=== PATIENT | male | born 1965 | race Caucasian/White ===

== ENCOUNTER → 2016-08-20 | Outpatient (CLI) | payer OTHER ==
[~2016-08-20] MED LIST: AMOX875T PO; ESOM20CA PO; FERR324T PO
[2016-08-20 12:58] LABS: BASO % 0.9 %; BASO ABS # 0.05 K/uL (0-0.2); COMPLETE YES; EOS % 1.8 %; HEMATOCRIT 34.9 % (42-52); IG% 0.5 %; LYMPH % 31.5 %; LYMPH ABS # 1.76 K/uL (1.2-3.4); MEAN CORPUSCULAR HEMOGLOBIN 25.4 pg (25-34); MEAN CORPUSCULAR HGB CONC 29.2 g/dl (32-36); MEAN PLATELET VOLUME 10.9 fL (7.4-10.4); MONO % 15.6 %; NEUT % 49.7 %; PLATELET COUNT 376 K/uL (130-400); RED BLOOD COUNT 4.01 M/uL (4.7-6.1); WHITE BLOOD COUNT 5.58 K/uL (4.8-10.8)
[2016-08-20 13:16] LABS: CALCIUM 8.9 mg/dl (8.5-10.1)
[2016-08-20 13:20] LABS: ALT/SGPT 21 U/L (12-78); AST/SGOT 13 U/L (15-37); BLOOD UREA NITROGEN 10 mg/dl (7-18); BUN/CREATININE RATIO 12.8 (10-20); CARBON DIOXIDE 28 mmol/L (21-32); CHLORIDE 106 mmol/L (98-107); CHOLESTEROL 180 mg/dl (0-200); CREATININE 0.78 mg/dl (0.60-1.40); GLUCOSE 86 mg/dl (70-99); POTASSIUM 3.4 mmol/L (3.5-5.1); SODIUM 143 mmol/L (136-145); TRIGLYCERIDES 43 mg/dl (0-150); VERY LOW DENSITY LIPOPROT CALC 9 mg/dl
[2016-08-20 13:35] LABS: URINE APPEARANCE TURBID (CLEAR); URINE COLOR DK YELLOW; URINE NITRITE NEG (NEG); URINE SPECIFIC GRAVITY 1.023 (1.000-1.030); UROBILINOGEN NEG (NEG)
[2016-08-20 13:36] LABS: ALB/GLOB RATIO 1.3 (0.9-2); ALKALINE PHOSPHATASE 84 U/L (45-117); CHOLESTEROL/HDL RATIO 3.1; HDL CHOLESTEROL 59 mg/dl; LDL CHOLESTEROL CALCULATED 112 mg/dl
[2016-08-20 13:56] LABS: MANUAL MICROSCOPIC REQUIRED? NO; REVIEW REQ? NO; URINE BILIRUBIN NEG (NEG)
== END | disposition home or self-care (01) ==
LOC: C.LABPBG 08:13
PROVIDERS: ATTEND Neuromusculoskeletal Medicine & OMM
DX: Z00.00 Encounter for general adult medical examination without abnormal findings (principal); Z12.5 Encounter for screening for malignant neoplasm of prostate; N40.1 Benign prostatic hyperplasia with lower urinary tract symptoms; M06.9 Rheumatoid arthritis, unspecified

== ENCOUNTER → 2016-09-02 | Outpatient (CLI) | payer OTHER | END | disposition home or self-care (01) | LOC: C.LABPBG 15:30 | PROVIDERS: ATTEND Neuromusculoskeletal Medicine & OMM | DX: K13.70 Unspecified lesions of oral mucosa (principal) ==

== ENCOUNTER → 2016-09-09 | Outpatient (CLI) | payer OTHER ==
--- NOTE | 2016-09-09 10:22 | DIAGNOSTIC IMAGING REPORT ---
LEFT WRIST 4 VIEWS CLINICAL HISTORY: Rheumatoid arthritis. FINDINGS: 4 views of left wrist are obtained. No prior studies are available for comparison at the time of dictation. The skeletal structures are well mineralized. No fracture is seen. The joint spaces of the wrist appear preserved. No erosive change is seen. A radiodense/metallic foreign body is identified within the palmar soft tissues between the base of the third and fourth metacarpals. IMPRESSION: 1. No acute bony abnormality is identified. 2. A metallic foreign body is present within the palmar soft tissues. Electronically signed by: Bishop Green M.D. 09/09/2016 10:21 AM Dictated Date/Time: 09/09/2016 10:20 AM
--- NOTE | 2016-09-09 10:23 | DIAGNOSTIC IMAGING REPORT ---
PELVIS 1 OR 2 VIEW ROUTINE CLINICAL HISTORY: M13.80 Symmetrical [id number] Rheumatoid [id number] COMPARISON STUDY: No previous studies for comparison. FINDINGS: No fractures are visualized. The joint space of each hip appears well-preserved for age. There are no erosive or destructive changes. IMPRESSION: 1. No evidence of fracture 2. The joint space of each hip appears well-preserved for age Electronically signed by: Taj Neal M.D. 09/09/2016 10:22 AM Dictated Date/Time: 09/09/2016 10:22 AM
--- NOTE | 2016-09-09 10:23 | DIAGNOSTIC IMAGING REPORT ---
RIGHT HAND MIN 3 VIEWS ROUTINE CLINICAL HISTORY: Symmetric polyarthritis. Rheumatoid arthritis. COMPARISON: None. DISCUSSION: There is an old healed fracture the fifth metacarpal. No acute fractures are visualized. Bony mineralization appears normal for age. There is no erosive disease. IMPRESSION: 1. No acute fractures 2. No evidence of erosive disease Electronically signed by: Taj Neal M.D. 09/09/2016 10:22 AM Dictated Date/Time: 09/09/2016 10:21 AM
--- NOTE | 2016-09-09 10:24 | DIAGNOSTIC IMAGING REPORT ---
LEFT HAND 3 VIEWS CLINICAL HISTORY: Arthritis. FINDINGS: 3 views of the left hand are obtained. No prior studies are available for comparison at the time of dictation. The skeletal structures are well mineralized. No fracture is seen. The joint spaces of the hand appear preserved. No erosive change is identified. A metallic foreign body is present within the palmar soft tissues at the level of the base of the third metacarpal. IMPRESSION: 1. No acute bony abnormality is seen. 2. A metallic foreign body is present within the palmar soft tissues. Electronically signed by: Bishop Green M.D. 09/09/2016 10:22 AM Dictated Date/Time: 09/09/2016 10:21 AM
--- NOTE | 2016-09-09 10:25 | DIAGNOSTIC IMAGING REPORT ---
RIGHT WRIST 4 VIEWS HISTORY: M13.80 Symmetrical [id number] Rheumatoid [id number] Right COMPARISON: None. FINDINGS: There is no fracture or dislocation. Soft tissues are unremarkable. No radiopaque foreign bodies. Bone mineralization is intact. No erosions identified. Cartilage spaces are maintained for age. IMPRESSION: Unremarkable right wrist. No erosions identified. Electronically signed by: Shawn Guevara M.D. 09/09/2016 10:23 AM Dictated Date/Time: 09/09/2016 10:22 AM
--- NOTE | 2016-09-09 10:25 | DIAGNOSTIC IMAGING REPORT ---
LEFT KNEE 3 VIEWS CLINICAL HISTORY: M13.80 Symmetrical [id number] Rheumatoid [id number] LEFT KNEE PAIN COMPARISON: None. DISCUSSION: No acute fractures or dislocations are visualized. There is a spur/osteochondroma arising from the medial femoral condyle. IMPRESSION: No evidence of fracture. No evidence of erosive disease. Electronically signed by: Taj Nael M.D. 09/09/2016 10:24 AM Dictated Date/Time: 09/09/2016 10:23 AM
[2016-09-09 10:33] LABS: BASO % 0.6 %; BASO ABS # 0.04 K/uL (0-0.2); COMPLETE YES; EOS % 1.1 %; HEMATOCRIT 39.8 % (42-52); IG% 0.7 %; LYMPH % 27.3 %; LYMPH ABS # 1.94 K/uL (1.2-3.4); MEAN CELL VOLUME 83.4 fL (80-100); MEAN CORPUSCULAR HEMOGLOBIN 24.9 pg (25-34); MEAN CORPUSCULAR HGB CONC 29.9 g/dl (32-36); MEAN PLATELET VOLUME 11.2 fL (7.4-10.4); MONO % 15.4 %; NEUT % 54.9 %; PLATELET COUNT 367 K/uL (130-400); RED BLOOD COUNT 4.77 M/uL (4.7-6.1)
[2016-09-09 11:01] LABS: ALT/SGPT 20 U/L (12-78); CREATININE 0.67 mg/dl (0.60-1.40)
[2016-09-09 11:04] LABS: ALKALINE PHOSPHATASE 119 U/L (45-117); AST/SGOT 15 U/L (15-37); RHEUMATOID FACTOR < 10.0 U/mL (0-15); TOTAL IRON BINDING CAPACITY 271 mcg/dl (250-450)
== END | disposition home or self-care (01) ==
LOC: C.RAD1850 09:23
PROVIDERS: ATTEND Internal Medicine Rheumatology
DX: M06.9 Rheumatoid arthritis, unspecified (principal); M13.80 Other specified arthritis, unspecified site; Z79.52 Long term (current) use of systemic steroids; Z79.899 Other long term (current) drug therapy

== ENCOUNTER → 2017-01-04 | Outpatient (CLI) | payer OTHER ==
[2017-01-04 12:10] LABS: BASO % 0.2 %; BASO ABS # 0.02 K/uL (0-0.2); COMPLETE YES; EOS % 0.3 %; HEMATOCRIT 43.2 % (42-52); IG% 0.5 %; LYMPH % 13.4 %; LYMPH ABS # 1.17 K/uL (1.2-3.4); MEAN CELL VOLUME 84.4 fL (80-100); MEAN CORPUSCULAR HEMOGLOBIN 27.3 pg (25-34); MEAN CORPUSCULAR HGB CONC 32.4 g/dl (32-36); MEAN PLATELET VOLUME 10.9 fL (7.4-10.4); MONO % 7.3 %; NEUT % 78.3 %; PLATELET COUNT 264 K/uL (130-400); RED BLOOD COUNT 5.12 M/uL (4.7-6.1); WHITE BLOOD COUNT 8.76 K/uL (4.8-10.8)
[2017-01-04 14:20] LABS: ALT/SGPT 22 U/L (12-78); AST/SGOT 19 U/L (15-37); CREATININE 0.74 mg/dl (0.60-1.40)
== END | disposition home or self-care (01) ==
LOC: C.LAB1850 11:26
PROVIDERS: ATTEND Internal Medicine Rheumatology
DX: M06.9 Rheumatoid arthritis, unspecified (principal); Z79.899 Other long term (current) drug therapy; Z79.52 Long term (current) use of systemic steroids

== ENCOUNTER → 2017-03-14 | Outpatient (CLI) | payer OTHER ==
[2017-03-14 16:50] LABS: BASO % 0.3 %; BASO ABS # 0.02 K/uL (0-0.2); COMPLETE YES; EOS % 0.8 %; HEMATOCRIT 42.9 % (42-52); IG% 0.4 %; LYMPH % 29.8 %; LYMPH ABS # 2.15 K/uL (1.2-3.4); MEAN CELL VOLUME 86.5 fL (80-100); MEAN CORPUSCULAR HEMOGLOBIN 28.4 pg (25-34); MEAN CORPUSCULAR HGB CONC 32.9 g/dl (32-36); MEAN PLATELET VOLUME 9.9 fL (7.4-10.4); MONO % 12.3 %; NEUT % 56.4 %; PLATELET COUNT 282 K/uL (130-400); RED BLOOD COUNT 4.96 M/uL (4.7-6.1); WHITE BLOOD COUNT 7.21 K/uL (4.8-10.8)
[2017-03-14 17:25] LABS: ALT/SGPT 25 U/L (12-78); AST/SGOT 18 U/L (15-37); CREATININE 0.75 mg/dl (0.60-1.40)
[2017-03-14 17:28] LABS: ALKALINE PHOSPHATASE 114 U/L (45-117)
== END ==
LOC: C.LAB1850 16:01
PROVIDERS: ATTEND Internal Medicine Rheumatology
DX: M06.9 Rheumatoid arthritis, unspecified (principal); Z79.899 Other long term (current) drug therapy; Z79.52 Long term (current) use of systemic steroids

== ENCOUNTER → 2017-08-12 | Outpatient (CLI) | payer OTHER ==
[2017-08-12 17:00] LABS: BASO % 0.5 %; BASO ABS # 0.03 K/uL (0-0.2); EOS % 1.6 %; EOS ABS # 0.09 K/uL (0-0.5); HEMATOCRIT 34.5 % (42-52); HEMOGLOBIN 10.4 g/dL (14.0-18.0); IG# 0.02 K/uL (0.00-0.02); LYMPH % 27.3 %; LYMPH ABS # 1.58 K/uL (1.2-3.4); MEAN CORPUSCULAR HEMOGLOBIN 22.6 pg (25-34); MEAN CORPUSCULAR HGB CONC 30.1 g/dl (32-36); MEAN PLATELET VOLUME 10.3 fL (7.4-10.4); MONO % 13.3 %; MONO ABS # 0.77 K/uL (0.11-0.59); NEUT ABS # 3.29 K/uL (1.4-6.5); PLATELET COUNT 333 K/uL (130-400); RED CELL DISTRIBUTION WIDTH CV 17.9 % (11.5-14.5); WHITE BLOOD COUNT 5.78 K/uL (4.8-10.8)
[2017-08-12 17:22] LABS: ALBUMIN 3.8 gm/dl (3.4-5.0); CREATININE 0.87 mg/dl (0.60-1.40)
[2017-08-12 17:26] LABS: ALKALINE PHOSPHATASE 109 U/L (45-117); ALT/SGPT 29 U/L (12-78); AST/SGOT 22 U/L (15-37)
== END | disposition home or self-care (01) ==
LOC: C.LABPBG 15:07
PROVIDERS: ATTEND Internal Medicine Rheumatology
DX: M06.9 Rheumatoid arthritis, unspecified (principal); Z79.899 Other long term (current) drug therapy; Z79.1 Long term (current) use of non-steroidal anti-inflammatories (NSAID); M54.5 Low back pain

== ENCOUNTER 2018-11-29 10:41 | Inpatient (IN) ==
[2018-11-29 11:54] LABS: Hematocrit (blood only) 27.6 % (42-52); Hemoglobin 7.6 g/dL (14.0-18.0); Mean Corpuscular Hgb Conc 27.5 g/dL (32-36); Mean Corpuscular Volume 66.2 fL (80-100); Mean Platelet Volume 9.4 fL (7.4-10.4); Platelet Count 352 K/uL (130-400); RDW Coefficient of Variation 19.1 % (11.5-14.5); RDW Standard Deviation 42.7 fL (36.4-46.3); Red Blood Count 4.17 M/uL (4.7-6.1); White Blood Count 4.86 K/uL (4.8-10.8)
[2018-11-29 11:55] LABS: INR 1.2 (0.9-1.1); Partial Thromboplastin Time 25.9 Seconds (21.0-31.0)
[2018-11-29 11:57] LABS: Albumin Level 3.6 gm/dl (3.4-5.0); Calcium 8.2 mg/dl (8.5-10.1); Creatinine Clr Calc Pharmacy 107.5 ml/min; Est GFR (African American) 119.9; Est GFR (Non-African American) 103.4; Potassium 3.4 mmol/L (3.5-5.1)
--- NOTE | 2018-11-29 11:57 | Emergency Department Note ---
ED Visit Note I assisted Dr. Hunter in the evaluation and management of this patient. Please see her note for complete visit details. Jing Ashby MD PGY3 [facility] . Resident Activity Tracking Resident Involvement: Resident Care Provided Care Provided: Adult ED
[2018-11-29 12:00] LABS: Albumin Globulin Ratio 1.1 (0.9-2); Bilirubin,Total 0.3 mg/dl (0.2-1); Globulin 3.2 gm/dl (2.5-4.0); Total Protein 6.8 gm/dl (6.4-8.2)
[2018-11-29 12:02] LABS: Basophils # (auto) 0.03 K/uL (0-0.2); Basophils % (auto) 0.6 %; Eosinophils # (auto) 0.02 K/uL (0-0.5); Eosinophils % (auto) 0.4 %; Hypochromasia Present; Immature Granulocytes # (auto) 0.02 K/uL (0.00-0.02); Immature Granulocytes % (auto) 0.4 %; Lymphocytes # (auto) 0.94 K/uL (1.2-3.4); Lymphocytes % (auto) 19.3 %; Microcytosis Present; Monocytes # (auto) 0.54 K/uL (0.11-0.59); Monocytes % (auto) 11.1 %; Neutrophils # (auto) 3.31 K/uL (1.4-6.5); Neutrophils % (auto) 68.2 %; Ovalocytes 1+
[2018-11-29] MEDS ORDERED: FAMOTIDINE 20MG/5ML IV PUSH IV STA (12:22)
--- NOTE | 2018-11-29 12:23 | History & Physical Report ---
Date of Service November 29, 2018 Assessment & Plan (1) Rectal bleeding: Admit patient to medicine on telemetry for rectal bleeding and severe anemia. -Vital signs every 4 hours -2 units of PRBCs -CBC every 6 hours, CMP daily. -Gentle IV fluid hydration -Keep patient n.p.o. -Started Protonix 40 mg IV twice daily. -Consulted GI will follow up with patient. -Iron studies pending please follow-up. -Continue for now for ferrous sulfate 325 mg p.o. twice daily -Full code -DVT prophylaxis contraindicated due to GI bleed. Present on Admission?: Yes (2) Rheumatoid arthritis: Stable, continue methotrexate sodium and sulfasalazine. Present on Admission?: Yes (3) BPH (benign prostatic hyperplasia): Stable, continue tamsulosin 0.4 mg p.o. nightly Present on Admission?: Yes History of Present Illness Primary Care Provider: Bettina Mendoza DO Patient is a 52 years old male with past medical history of rheumatoid arthritis, benign prostatic hypertrophy and chronic anemia who presents to the emergency room complaining of chronic rectal bleeding for 4 years on and off. Patient states that rectal bleeding is worsening and that he also has chronic constipation. Patient had colonoscopy done 4 years ago. After that patient did not have follow-up and he also does not have established PCP. Patient was seeing MsBalta Orozco for the rheumatoid arthritis but she left the area recently. Patient said that for some period of time he did not follow on his blood count and his family told him that he looks pale. He admits drinking in the past approximately 15+ cans of beer on the weekends but he stopped 2 years ago and recently in past 2 weeks he had only 3 beers altogether. Other than that patient reports being in good health and not having any other issues. Patient states that his bowel movements are painful most of the time. There are on and off brown in color and formed but on occasions and recently more often his bowel movements are covered with red blood mucousy and very painful. Patient said he is aware that he has hemorrhoids and patient states they are internal and external. Patient said he did not try anything to relieve his pain and constipation or hemorrhoids. Nothing makes it better or worse. Patient denies headache fever chills chest pain shortness of breath abdominal pain frequency urgency hematuria hemoptysis nausea and vomiting. Hematology White blood cell 4.86, hemoglobin 7.6, hematocrit 27.6, MCV 66.2 low MCH 18.2 low MCHC 27.5 low. Chemistry sodium 140, potassium 3.4, creatinine 0.76, GFR 107.5, BUN/creatinine 9.0., PT 12 INR 1.2, APTT 25.9. The case was discussed and patient is admitted to [facility] telemetry for further management and treatment. Allergies Allergy/AdvReac Type Severity Reaction Status Date / Time No Known Allergies Allergy Verified 11/29/18 11:44 Home Medications Home Medications Medication Instructions Recorded Confirmed Type ferrous sulfate 325 mg PO BID 07/19/18 11/29/18 History omeprazole 20 mg PO QAM 07/19/18 11/29/18 History sulfasalazine 0.5 g PO BID 07/19/18 11/29/18 History tamsulosin 0.4 mg PO HS 07/20/18 11/29/18 History methotrexate sodium 7.5 mg PO WK 11/29/18 11/29/18 History Past Med/Surg History Medical History Rheumatoid arthritis Anxiety GERD (gastroesophageal reflux disease) CONTROLLED Diverticular disease Iron deficiency anemia ON IRON SUPPLEMENTATION BPH (benign prostatic hyperplasia) Inflammatory arthritis Surgical History History of prostate surgery July 2018; Cystoscopy, Transurethral Resection of Prostate History of colonoscopy September 2015; diverticulosis, internal hemorrhoids History of esophagogastroduodenoscopy (EGD) September 2015; small hiatus hernia, severe chronic gastritis, acute inflammation, +H Pylori, focal intestinal metaplasia. History of inguinal hernia repair RIGHT History of nasal surgery Family History Aunt Family hx of colon cancer Grandmother (Maternal) Family hx of colon cancer Other Family history of diabetes mellitus Social History Preferred Language: Northern Irish Communication Ability: Effective Cloud Engagement Partner Required: No Beliefs That Will Affect Care: None Current Living Situation: Spouse Other Information That Helps Us Care for You: No Feels Safe at Home: Yes Safety Concerns: Feels Safe At This Time Smoking Status: Never smoker Do You Dip or Chew Tobacco: No ; Second Hand Exposure: No ; Tobacco Cessation Education Requested by Patient: No Hx Alcohol Use: No Hx Substance Use: No Review of Systems Review of Systems: All systems reviewed & are unremarkable except as noted in HPI & below Gastrointestinal: + constipation, + constant urge to pass stools and + blood in stools; no abdominal pain Physical Exam Constitutional: WD/WN, vitals as above Eyes: PERRL, conjunctivae normal, anicteric sclerae ENMT: external ear and nose normal, oropharynx normal Neck: trachea midline, no thyromegaly Cardiovascular: RRR, no murmur, no edema Chest (Breasts): normal inspection/palpation of breasts Gastrointestinal (Abdomen): Inspection/Auscultation: + abdomen distended Percussion/Palpation: + dullness to percussion Rectal Exam: + heme positive stool and + rectal lesions Musculoskeletal: no cyanosis or clubbing, extremities motor strength 5/5 Skin: no rashes, warm and dry Neurologic: patellar DTR's 2+ bilat, sensation intact Psychiatric: A+Ox3, euthymic affect Genitourinary: no testicular masses, no penis abnormality Lymphatic: no cervical or axillary lymphadenopathy Results & Data Vital Signs (Past 12 Hours) Vital Signs Temp Pulse Resp BP Pulse Ox 11/29/18 12:01 98 11/29/18 10:45 37 C 88 18 144/76 H 96 Code Status & VTE Plan Code Status Full code VTE Prophylaxis Plan VTE Prophylaxis will be ordered: No Reason for no VTE drug order: Contraindicated (hematochezia) PG Care Time/CCT Total # of Minutes Spent Total Time Spent with Patient: Total time spent is greater than 50% in coordination of care (as documented) at patient's floor/unit and/or counseling patient:
[2018-11-29] MEDS: PANTOprazole 40 MG in SYRINGE 0 ML IV SCH ×2 (14:20→22:22)
[2018-11-29] MEDS ORDERED: POLYETHYLENE (MIRALAX) 17 GM PACK PO PRN (14:33)
[2018-11-29] MEDS ORDERED: ZOLPIDEM TARTRATE 5 MG TAB PO PRN (14:33)
[2018-11-29] MEDS ORDERED: ALUMINUM/MAGNESIUM SUSP 30 ML UDC PO PRN (14:33)
[2018-11-29] MEDS ORDERED: MAGNESIUM HYDROXIDE SUSP 30 ML UDC PO PRN (14:33)
[2018-11-29] MEDS ORDERED: ONDANSETRON INJ 2 MG/ML 2 ML VIAL IV PRN (14:33)
[2018-11-29] MEDS ORDERED: ACETAMINOPHEN 325 MG TAB PO PRN (14:33)
[2018-11-29] MEDS ORDERED: SODIUM CHLORIDE 0.9% 250 ML IV PRN (14:33)
--- NOTE | 2018-11-29 14:57 | Gastroenterology Progress Note ---
Date of Service November 29, 2018 Subjective Attg add: I interviewed and examined pt, reviewed chart and labs. Pt with a h/o RA, on NSAIDs; heavy alcohol; h/o chronic anemia and admission for fe def and unremarkable chan-endoscopy in 2016 now admit for rectal bleeding and anemia. Pt states that 2 weeks ago, he had 4-5 days of hematochezia - describes large vol dark red blood and clots. Per his report, he did not seek medical attention, and bleeding appeared to spontaneously improve. For the past week, he has had smaller volume of hematochezia; for the past 3 days he has small streaks of red blood around his bowel movements. He has chronic abd pain that is unchanged. On exam, mild hypertension, he has circumferential rectal prolapse and hemorrhoids. There is a bleeding point on one of the hemorrhoids that is slightly oozing. On PAU, there is no stool in the vault. His labs show hgb 7, MCV g7, decreased from 11 in June. His BUN is normal. A/p - Rectal bleeding - History and exam are c/w hemorrhoidal bleed. No need for inpt colonoscopy - his bleeding is likely chronic, as suggested by microcytosis; he has had recent cscopy in 2016 without sig pathology; his overt bleeding has largely resolved by his history, and his VS are stable. Please consult surgery for possible hemorrhoid removal. Will sign off, please call with any questions. Results & Data Vital Signs (Past 12 Hours) Vital Signs Temp Pulse Pulse Resp BP BP Pulse Ox 11/29/18 14:51 78 11/29/18 14:21 69 18 144/88 H 98 11/29/18 14:13 76 18 140/80 99 11/29/18 13:48 69 16 135/82 99 11/29/18 12:01 98 11/29/18 10:45 37 C 88 18 144/76 H 96
[2018-11-29] MEDS: NSS + 20MEQ KCL 20 MEQ/1,000 ML BAG IV SCH (15:03)
--- NOTE | 2018-11-29 15:11 | Gastrointestinal Consultation ---
Date of Consultation November 29, 2018 Assessment & Plan (1) Iron deficiency anemia: (2) Hemorrhoid prolapse: (3) Rectal bleeding: Pt is a 52 y/o male w microcytic anemia, rectal bleeding likely from hemorrhoids. - Agree with blood transfusion, monitor H/H - Would obtain Surgery consult while admitted to discuss possible hemorrhoidectomy - Defer endoscopic workup at this time. If he needs additional GI follow up after DC, would recommend referring to either [facility] or [facility] as [facility]. - GI to sign off; call if new questions/concerns arise History of Present Illness Reason for Consultation: Anemia, hematochezia Requesting Physician: Dr. Ilir Cortés Attending Physician: Dr. Lorri Mattson History of Present Illness Pt is a 52 y/o male w PMHx of RA, GERD, BPH, diverticulosis, anemia who was referred to ED for anemia. He had gone to PCP after family noted he's "yellow". Outpt labs obtained and he was referred to ED after noted to have microcytic anemia. Repeat labs today showed H/H 7.6/27.6, Hgb in April was 16. Normal platelet, INR 1.2, LFTs and Lipase normal. Pt denies uses of anticoagulants. Denies epistaxis, gum bleeding, hematomas. Does have rectal bleeding for years but noted increased blood amt in last 2 weeks. Notes stools are usually formed, and would see bright red blood coating stools or in such large amt that it turned commode liquid red. Rectal bleeding in last couple of day are a bit improved. He has known hx of hemorrhoids w rectal pain. Previously also seen by Surgery (Dr. Aparicio) but never followed up since insurance changed to [facility] and [facility] not taking this insurance. He has mild pressure like discomfort on lower abd areas otherwise denies any n/v. + mild light headedness, no CP, SOB. He had been evaluated by GI in 2016 for similar anemia symptoms. EGD/Colonoscopy done then. EGD showed small hiatal hernia, + Hpylori (treated). Colonoscopy showed diverticulosis, int hemorrhoids. He is on Methotraxate for RA. He takes Excedrin about 2 tabs a week for lower back pain. He denies any ETOH, tobacco, illicit drugs. Allergies Allergy/AdvReac Type Severity Reaction Status Date / Time No Known Allergies Allergy Verified 11/29/18 11:44 Home Medications Home Medications Medication Instructions Recorded Confirmed Type ferrous sulfate 325 mg PO BID 07/19/18 11/29/18 History omeprazole 20 mg PO QAM 07/19/18 11/29/18 History sulfasalazine 0.5 g PO BID 07/19/18 11/29/18 History tamsulosin 0.4 mg PO HS 07/20/18 11/29/18 History methotrexate sodium 7.5 mg PO WK 11/29/18 11/29/18 History Patient History Medical History Rheumatoid arthritis Anxiety GERD (gastroesophageal reflux disease) CONTROLLED Diverticular disease Iron deficiency anemia ON IRON SUPPLEMENTATION BPH (benign prostatic hyperplasia) Inflammatory arthritis Surgical History History of prostate surgery July 2018; Cystoscopy, Transurethral Resection of Prostate History of colonoscopy September 2015; diverticulosis, internal hemorrhoids History of esophagogastroduodenoscopy (EGD) September 2015; small hiatus hernia, severe chronic gastritis, acute inflammation, +H Pylori, focal intestinal metaplasia. History of inguinal hernia repair RIGHT History of nasal surgery Family History Aunt Family hx of colon cancer Grandmother (Maternal) Family hx of colon cancer Other Family history of diabetes mellitus Social History Preferred Language: Lao Communication Ability: Effective Elderly Companion Required: No Beliefs That Will Affect Care: None Current Living Situation: Spouse Feels Safe at Home: Yes Smoking Status: Never smoker Second Hand Exposure: No ; Hx Alcohol Use: No Hx Substance Use: No Review of Systems 2 Review of Systems: All systems reviewed & are unremarkable except as noted in HPI & below Physical Exam Constitutional: WD/WN, vitals as above well groomed, cooperative and comfortable Eyes: PERRL, conjunctivae normal, anicteric sclerae ENMT: external ear and nose normal, oropharynx normal Respiratory: normal respiratory effort, lungs clear to auscultation Cardiovascular: RRR, no murmur, no edema Gastrointestinal (Abdomen): normal bowel sounds, soft, nontender, no hepatosplenomegaly Rectal Exam: + hemorrhoids (prolapsed ; deferred internal exam as was done by admitted hospitalist ) Skin: no rashes, warm and dry no jaundice Neurologic: Motor/Sensory: no asterixis Psychiatric: A+Ox3, euthymic affect Lymphatic: no lymphedema Results & Data Vital Signs (Past 12 Hours) Vital Signs Temp Pulse Pulse Resp BP BP Pulse Ox 11/29/18 14:51 78 11/29/18 14:21 69 18 144/88 H 98 11/29/18 14:13 76 18 140/80 99 11/29/18 13:48 69 16 135/82 99 11/29/18 12:01 98 11/29/18 10:45 37 C 88 18 144/76 H 96
[2018-11-29] MEDS: FERROUS SULFATE 325 MG TAB PO SCH ×2 (15:16→20:43)
--- NOTE | 2018-11-29 15:38 | Emergency Department Note ---
Entered by Laura Zamora acting as a scribe for Katie Hunter MD History of Present Illness General Chief complaint: Abnormal Labs/Diagnostic Testing Stated complaint: ANEMIA Time Seen by Provider: 11/29/18 10:54 Source: patient History of Present Illness Onset (ago): day(s) 1 Location: head (general) Severity: similar to prior episodes Pain Consistency: + other (episode) Maximum Pain Intensity: 5 Quality: + other (abnormal blood work) Associated symptoms: + shortness of breath and + other (positive dizziness; negative lightheadedness; positive bloody stool) The patient is a 52 year old male who presents to the Emergency Room with complaints of an episode of abnormal blood work that began yesterday. The patient states that he saw his PCP yesterday and was called this morning by his PCP because of his low hemoglobin. He states that he was told his hemoglobin is 7.5. The patient states that he saw his PCP after his family noticed he appeared jaundice. He states that he has felt "run down" over the past week, and states that he has been dizzy and short of breath during this time. The patient states that he has a history of bleeding hemorrhoids and in the past week he has been filling the toilet bowl with bright red blood when he has a bowel movement. The patient denies nausea, vomiting, and lightheadedness. The patient states that he has a history of diverticular disease and in 2016 had transfusions after he was found to have a hemoglobin of 4. He reports that he previously was an alcoholic and has been alcohol free for 2 years, but states that he has had 1 or 2 beers in the in the past 2 weeks. The patient states that he is a previous smoker. Home Medications Home Medications Medication Instructions Recorded Confirmed Type ferrous sulfate 325 mg PO BID 07/19/18 11/29/18 History omeprazole 20 mg PO QAM 07/19/18 11/29/18 History sulfasalazine 0.5 g PO BID 07/19/18 11/29/18 History tamsulosin 0.4 mg PO HS 07/20/18 11/29/18 History methotrexate sodium 7.5 mg PO WK 11/29/18 11/29/18 History oxycodone-acetaminophen [Percocet] 1 - 2 tab PO Q4H PRN #15 tab 11/30/18 Rx Allergies Allergy/AdvReac Type Severity Reaction Status Date / Time No Known Allergies Allergy Verified 11/29/18 11:44 Past Med/Surg History Medical History Rectal bleeding Rheumatoid arthritis BPH (benign prostatic hyperplasia) Inflammatory arthritis GERD (gastroesophageal reflux disease) CONTROLLED Iron deficiency anemia ON IRON SUPPLEMENTATION Surgical History History of colonoscopy September 2015; diverticulosis, internal hemorrhoids History of esophagogastroduodenoscopy (EGD) September 2015; small hiatus hernia, severe chronic gastritis, acute inflammation, +H Pylori, focal intestinal metaplasia. History of inguinal hernia repair RIGHT History of nasal surgery History of prostate surgery July 2018; Cystoscopy, Transurethral Resection of Prostate Family History Aunt Family hx of colon cancer Grandmother (Maternal) Family hx of colon cancer Other Family history of diabetes mellitus Social History Preferred Language: Estonian Communication Ability: Effective Able Seaman Required: No Beliefs That Will Affect Care: None marital status: Current Living Situation: Spouse Feels Safe at Home: Yes Smoking Status: Never smoker Second Hand Exposure: No ; Hx Alcohol Use: No Hx Substance Use: No Review of Systems See HPI for pertinent positives & negatives. and A total of 10 systems reviewed and were otherwise negative Physical Exam Vital Signs Vital Signs - 24 hr 11/29/18 10:45 11/29/18 12:01 Temperature 37 C Temperature Source Oral Sepsis Recent Fever Within 48 Hours No Sepsis Action Taken by Nursing No Action Required Pulse Rate 88 Respiratory Rate 18 Blood Pressure 144/76 H Blood Pressure Mean 98 Pulse Oximetry 96 98 Oxygen Delivery Method Room Air Room Air Vital signs reviewed. General: Well-appearing 52 year old male, in no significant distress. HEENT: No scleral icterus, PERRLA, neck supple. Atraumatic. Cardiovascular: Regular rate and rhythm, no extra sounds. Pulmonary: Clear to auscultation bilaterally, normal work of breathing. Abdomen: Soft, nontender, nondistended, positive bowel sounds. Rectal: External hemorrhoids. Faintly guaiac positive. No active bleeding. Musculoskeletal: Atraumatic, no peripheral edema. Neurologic: Patient awake alert and oriented x 3 Skin: Pale in appearance. Warm, dry, no rash Course 1053: The patient was seen and evaluated by the resident Jing Ashby. 1213: Past medical records reviewed. The patient was evaluated in room C1B. A complete history and physical exam was performed. 1218: I discussed the case with Dr. Cortés -[facility] Hospitalist who accepts the patient for further evaluation. Administered Medications Discontinued Medications Acetaminophen (Tylenol) 650 mg PO Q4H PRN PRN Reason: Pain or Fever Stop: 12/29/18 14:32 Last Admin: 11/29/18 15:16 Dose: 650 mg Documented by: [id number] Hydrocodone Bitart/Acetaminophen ([place] 5/325) 1 tab PO Q4H PRN PRN Reason: Pain Stop: 12/14/18 14:00 Last Admin: 11/30/18 19:33 Dose: 1 tab Documented by: [id number] Bupivacaine HCl/Epinephrine Bitart (Sensorcaine/Epinephrine 0.5% Mpf 1:200,000) Confirm Administered Dose 30 ml .ROUTE .STK-MED ONE Stop: 11/30/18 11:29 Last Admin: 11/30/18 12:34 Dose: 20 ml Documented by: [id number] Cefazolin Sodium (Ancef 2000mg) Confirm Administered Dose 2,000 mg IV .STK-MED ONE Stop: 11/30/18 11:26 Last Admin: 11/30/18 11:50 Dose: 2,000 mg Documented by: [id number] Famotidine (Pepcid 20mg Iv Push) 20 mg IV ONE STA Stop: 11/29/18 12:23 Last Admin: 11/29/18 13:48 Dose: 20 mg Documented by: [id number] Fentanyl Citrate (Fentanyl Citrate) 50 mcg IV Q5M PRN PRN Reason: PACU Use Only-Pain Stop: 11/30/18 16:31 Last Admin: 11/30/18 13:26 Dose: 50 mcg Documented by: [id number] Admin: 11/30/18 13:21 Dose: 50 mcg Documented by: [id number] Ferrous Sulfate (Feosol) 325 mg PO BID MARGIE Stop: 12/29/18 14:44 Last Admin: 11/30/18 08:32 Dose: 325 mg Documented by: [id number] Admin: 11/29/18 20:43 Dose: 325 mg Documented by: [id number] Admin: 11/29/18 15:16 Dose: 325 mg Documented by: [id number] Gelatin (Surgifoam Sponge 100 (Large)) Confirm Administered Dose 1 ea .ROUTE .STK-MED ONE Stop: 11/30/18 11:28 Last Admin: 11/30/18 12:28 Dose: 1 ea Documented by: [id number] Gelatin (Surgifoam Sponge 100 (Large)) Confirm Administered Dose 1 ea .ROUTE .STK-MED ONE Stop: 11/30/18 12:22 Last Admin: 11/30/18 12:29 Dose: Not Given Documented by: [id number] Pantoprazole Sodium 40 mg/ (Syringe) 10 mls @ 5 mls/min IV BID@0900,2100 [facility] Stop: 12/29/18 13:29 Last Admin: 11/30/18 08:32 Dose: 5 mls/min Documented by: [id number] Admin: 11/29/18 22:22 Dose: 5 mls/min Documented by: [id number] Admin: 11/29/18 14:20 Dose: 5 mls/min Documented by: [id number] Potassium Chloride/Sodium Chloride (Normal Saline W/20 Meq Kcl) 20 meq in 1,000 mls @ 100 mls/hr IV .Q10H MARGIE Stop: 12/29/18 14:32 Last Infusion: 11/30/18 15:18 Dose: 0 mls/hr Documented by: [id number] Admin: 11/30/18 15:17 Dose: Not Given Documented by: [id number] Infusion: 11/30/18 10:50 Dose: 0 mls/hr Documented by: [id number] Admin: 11/30/18 06:39 Dose: 100 mls/hr Documented by: [id number] Infusion: 11/30/18 06:39 Dose: 100 mls/hr Documented by: [id number] Infusion: 11/29/18 22:17 Dose: 100 mls/hr Documented by: [id number] Infusion: 11/29/18 16:20 Dose: 0 mls/hr Documented by: [id number] Admin: 11/29/18 15:03 Dose: 100 mls/hr Documented by: [id number] Lidocaine (Xylocaine 5%) 1 appln EXT ONCE PRN PRN Reason: Hemorrhoids Stop: 12/30/18 12:29 Last Admin: 11/30/18 12:32 Dose: 1 appln Documented by: [id number] Potassium Chloride (Klor-Con M20) 40 meq PO NOW STA Stop: 11/30/18 05:09 Last Admin: 11/30/18 06:22 Dose: 40 meq Documented by: [id number] Simethicone (Mylicon) 80 mg PO Q6H PRN PRN Reason: gas pain Stop: 12/30/18 08:51 Last Admin: 11/30/18 10:13 Dose: 80 mg Documented by: [id number] Sulfadiazine (Azulfidine) 500 mg PO BID MARGIE Stop: 12/30/18 08:59 Last Admin: 11/30/18 08:32 Dose: 500 mg Documented by: [id number] Tamsulosin HCl (Flomax) 0.4 mg PO HS MARGIE Stop: 12/29/18 20:59 Last Admin: 11/29/18 20:42 Dose: 0.4 mg Documented by: [id number] Zolpidem Tartrate (Ambien) 5 mg PO HS PRN PRN Reason: Sleep Stop: 12/29/18 14:32 Last Admin: 11/30/18 00:21 Dose: 5 mg Documented by: [id number] Medical Decision Making Differential Diagnosis Differential diagnosis: Etiologies such as diverticulosis, AVM, coagulopathy, colitis, inflammatory bowel disease, malignancy, Carolyne-Shaikh tear, esophagitis, peptic ulcer disease, variceal bleed, gastritis, epistaxis, fissure, hemorrhoids, aswell as others were entertained. Medical Records Attestation: I reviewed the patient's medical records. Home Medications Current Medication List: was personally reviewed by me Laboratory Data Attestation: I reviewed the patient's lab results. Result diagrams: 11/30/18 14:41 11/30/18 02:36 Lab Results 11/29/18 11/29/18 11/29/18 Range/Units 11:23 11:27 11:27 WBC 4.86 (4.8-10.8) K/uL RBC 4.17 L (4.7-6.1) M/uL Hgb 7.6 L (14.0-18.0) g/dL Hct 27.6 L (42-52) % MCV 66.2 L (80-100) fL MCH 18.2 L (25-34) pg MCHC 27.5 L (32-36) g/dL RDW Std Deviation 42.7 (36.4-46.3) fL RDW Coeff of Ezekiel 19.1 H (11.5-14.5) % Plt Count 352 (130-400) K/uL MPV 9.4 (7.4-10.4) fL Immature Gran % (Auto) 0.4 % Neut % (Auto) 68.2 % Lymph % (Auto) 19.3 % [place] % (Auto) 11.1 % Eos % (Auto) 0.4 % Baso % (Auto) 0.6 % Immature Gran # (Auto) 0.02 (0.00-0.02) K/uL Neut # (Auto) 3.31 (1.4-6.5) K/uL Lymph # (Auto) 0.94 L (1.2-3.4) K/uL [place] # (Auto) 0.54 (0.11-0.59) K/uL Eos # (Auto) 0.02 (0-0.5) K/uL Baso # (Auto) 0.03 (0-0.2) K/uL Hypochromasia Present Microcytosis Present Ovalocytes 1+ PT 12.0 (9.0-12.0) Seconds INR 1.2 H (0.9-1.1) APTT 25.9 (21.0-31.0) Seconds PTT Ratio 1.0 Sodium (136-145) mmol/L Potassium (3.5-5.1) mmol/L Chloride (98-107) mmol/L Carbon Dioxide (21-32) mmol/L Anion Gap (3-11) BUN (7-18) mg/dl Creatinine (0.6-1.4) mg/dl Est Cr Clr Drug Dosing ml/min Est GFR ( Amer) Est GFR (Non-Af Amer) BUN/Creatinine Ratio (10-20) Glucose (70-99) mg/dl Calcium (8.5-10.1) mg/dl Total Bilirubin (0.2-1) mg/dl AST (15-37) U/L ALT (12-78) U/L Alkaline Phosphatase (45-117) U/L Total Protein (6.4-8.2) gm/dl Albumin (3.4-5.0) gm/dl Globulin (2.5-4.0) gm/dl Albumin/Globulin Ratio (0.9-2) Lipase (73-393) U/L Blood Type O Positive Antibody Screen NEGATIVE Crossmatch See Detail 11/29/18 Range/Units 11:27 WBC (4.8-10.8) K/uL RBC (4.7-6.1) M/uL Hgb (14.0-18.0) g/dL Hct (42-52) % MCV (80-100) fL MCH (25-34) pg MCHC (32-36) g/dL RDW Std Deviation (36.4-46.3) fL RDW Coeff of Ezekiel (11.5-14.5) % Plt Count (130-400) K/uL MPV (7.4-10.4) fL Immature Gran % (Auto) % Neut % (Auto) % Lymph % (Auto) % [place] % (Auto) % Eos % (Auto) % Baso % (Auto) % Immature Gran # (Auto) (0.00-0.02) K/uL Neut # (Auto) (1.4-6.5) K/uL Lymph # (Auto) (1.2-3.4) K/uL [place] # (Auto) (0.11-0.59) K/uL Eos # (Auto) (0-0.5) K/uL Baso # (Auto) (0-0.2) K/uL Hypochromasia Microcytosis Ovalocytes PT (9.0-12.0) Seconds INR (0.9-1.1) APTT (21.0-31.0) Seconds PTT Ratio Sodium 140 (136-145) mmol/L Potassium 3.4 L (3.5-5.1) mmol/L Chloride 108 H (98-107) mmol/L Carbon Dioxide 27 (21-32) mmol/L Anion Gap 5.0 (3-11) BUN 7 (7-18) mg/dl Creatinine 0.76 (0.6-1.4) mg/dl Est Cr Clr Drug Dosing 107.5 ml/min Est GFR ( Amer) 119.9 Est GFR (Non-Af Amer) 103.4 BUN/Creatinine Ratio 9.0 L (10-20) Glucose 91 (70-99) mg/dl Calcium 8.2 L (8.5-10.1) mg/dl Total Bilirubin 0.3 (0.2-1) mg/dl AST 20 (15-37) U/L ALT 28 (12-78) U/L Alkaline Phosphatase 92 (45-117) U/L Total Protein 6.8 (6.4-8.2) gm/dl Albumin 3.6 (3.4-5.0) gm/dl Globulin 3.2 (2.5-4.0) gm/dl Albumin/Globulin Ratio 1.1 (0.9-2) Lipase 110 (73-393) U/L Blood Type Antibody Screen Crossmatch ECG Data Attestation: I personally reviewed and interpreted this ECG as follows: Indication: weakness Rate (beats per minute): 72 Rhythm: normal sinus Findings: no acute ischemic change and no ectopy Blood Pressure Blood Pressure Findings: Elevated blood pressure Blood Pressure Disposition: further management by hospitalist MDM Narrative This pt was evaluated and appeared to be in no distress. IV access was obtained and lab work was drawn. PT was placed on the hall monitor. Lab work reveals a hbg of 7.5 yesterday and 7.6 today. It seems the bulk of the bleeding was earlier in the week. Pt was type and crossed, consented for PRBC. IV pe pcid was administered. Pt was informed of the findings. Given h/o GIB and ETOH, pt will require further workup. The hospitalist was contacted, Dr. Cortés, who will evaluate for further management. Pt is aware of the plan and agree. Impression & Plan Lower GI bleed Discharge Plan Visit Data *Final* Discharge Date/Time: 11/29/18 14:13 Chief Complaint: Abnormal Labs/Diagnostic Testing Stated Complaint: ANEMIA ED Provider: Katie Hunter ED Midlevel Provider: Jing Ashby Discharge Problem: Lower GI bleed Patient Disposition: Admitted As Inpatient Discharge Instructions Interventions: ED Discharge Assessment Last Done: 11/29/18 14:13 The scribe's documentation has been prepared under my direction and personally reviewed by me in its entirety. I confirm that the note above accurately reflects all work, treatment, procedures, and medical decision making performed by me.
--- NOTE | 2018-11-29 16:27 | Surgery Consultation ---
Date of Consultation November 29, 2018 Assessment & Plan (1) Rectal bleeding: Will plan for EUA possible hemorrhoidectomy tomorrow in OR. as above. bright red bleeding/burning with BM's for over a year. had prior colonoscopy which was negative. will exam under anesthesia, possible hemorrhoidectomy, possible sphincterotomy, possible fistulotomy, JACKSON. discussed risks ( bleeding/infection/injury to sphincter etc...) questions answered. will proceed with ANGIE with JACKSON. History of Present Illness Attending Physician: Ilir Cortés MD History of Present Illness 52 y/o male admitted for rectal bleeding, anemia. Had 4-5 days of heavy dark blood last week, there has been less the last few days. Saw his PCP yesterday, has also been seen by Dr. Aparicio but did not have hemorrhoidectomy due to a change in insurance. Had colonoscopy [place] [address] Garland. Allergies Allergy/AdvReac Type Severity Reaction Status Date / Time No Known Allergies Allergy Verified 11/29/18 11:44 Home Medications Home Medications Medication Instructions Recorded Confirmed Type ferrous sulfate 325 mg PO BID 07/19/18 11/29/18 History omeprazole 20 mg PO QAM 07/19/18 11/29/18 History sulfasalazine 0.5 g PO BID 07/19/18 11/29/18 History tamsulosin 0.4 mg PO HS 07/20/18 11/29/18 History methotrexate sodium 7.5 mg PO WK 11/29/18 11/29/18 History Patient History Medical History Rectal bleeding Rheumatoid arthritis GERD (gastroesophageal reflux disease) CONTROLLED Iron deficiency anemia ON IRON SUPPLEMENTATION BPH (benign prostatic hyperplasia) Inflammatory arthritis Surgical History History of prostate surgery July 2018; Cystoscopy, Transurethral Resection of Prostate History of colonoscopy September 2015; diverticulosis, internal hemorrhoids History of esophagogastroduodenoscopy (EGD) September 2015; small hiatus hernia, severe chronic gastritis, acute inflammation, +H Pylori, focal intestinal metaplasia. History of inguinal hernia repair RIGHT History of nasal surgery Family History Aunt Family hx of colon cancer Grandmother (Maternal) Family hx of colon cancer Other Family history of diabetes mellitus Social History Preferred Language: Persian Communication Ability: Effective Briquette Molder Required: No Beliefs That Will Affect Care: None marital status: Current Living Situation: Spouse Other Information That Helps Us Care for You: No Feels Safe at Home: Yes Safety Concerns: Feels Safe At This Time Smoking Status: Never smoker Do You Dip or Chew Tobacco: No ; Second Hand Exposure: No ; Tobacco Cessation Education Requested by Patient: No Hx Alcohol Use: No Hx Substance Use: No Review of Systems Gastrointestinal: + constipation, + constant urge to pass stools and + blood in stools; no abdominal pain Physical Exam Gastrointestinal (Abdomen): Percussion/Palpation: abdomen soft; abdomen nontender Rectal Exam: + hemorrhoids (external, internal exam deferred) Results & Data Vital Signs (Past 12 Hours) Vital Signs Temp Pulse Pulse Resp BP BP Pulse Ox 11/29/18 16:03 36.7 C 70 18 136/73 99 11/29/18 15:47 36.7 C 77 18 139/90 99 11/29/18 14:51 78 11/29/18 14:40 36.8 C 75 18 149/83 H 98 11/29/18 14:21 69 18 144/88 H 98 11/29/18 14:13 76 18 140/80 99 11/29/18 13:48 69 16 135/82 99 11/29/18 12:01 98 11/29/18 10:45 37 C 88 18 144/76 H 96 PG Care Time/CCT Total # of Minutes Spent Total Time Spent with Patient: Total time spent is greater than 50% in coordination of care (as documented) at patient's floor/unit and/or counseling patient:
[2018-11-29 16:41] LABS: Hemoglobin 7.2 g/dL (14.0-18.0); Mean Corpuscular Hgb Conc 27.7 g/dL (32-36); Mean Corpuscular Volume 67.5 fL (80-100); Mean Platelet Volume 9.3 fL (7.4-10.4); Platelet Count 342 K/uL (130-400); RDW Coefficient of Variation 19.4 % (11.5-14.5); RDW Standard Deviation 44.2 fL (36.4-46.3); Red Blood Count 3.85 M/uL (4.7-6.1); White Blood Count 5.44 K/uL (4.8-10.8)
[2018-11-29 16:43] LABS: Basophils # (auto) 0.03 K/uL (0-0.2); Basophils % (auto) 0.6 %; Eosinophils # (auto) 0.03 K/uL (0-0.5); Eosinophils % (auto) 0.6 %; Hypochromasia Present; Immature Granulocytes # (auto) 0.01 K/uL (0.00-0.02); Immature Granulocytes % (auto) 0.2 %; Lymphocytes # (auto) 1.26 K/uL (1.2-3.4); Lymphocytes % (auto) 23.2 %; Microcytosis Present; Monocytes # (auto) 0.79 K/uL (0.11-0.59); Monocytes % (auto) 14.5 %; Neutrophils # (auto) 3.32 K/uL (1.4-6.5); Neutrophils % (auto) 60.9 %; Ovalocytes 1+; Polychromasia 1+
[2018-11-29] MEDS ORDERED: TAMSULOSIN HCL 0.4 MG CAP PO SCH (21:00)
[2018-11-29 23:28] LABS: Basophils # (auto) 0.03 K/uL (0-0.2); Basophils % (auto) 0.5 %; Eosinophils # (auto) 0.08 K/uL (0-0.5); Eosinophils % (auto) 1.4 %; Hematocrit (blood only) 31.3 % (42-52); Hemoglobin 9.3 g/dL (14.0-18.0); Immature Granulocytes # (auto) 0.01 K/uL (0.00-0.02); Immature Granulocytes % (auto) 0.2 %; Lymphocytes # (auto) 1.54 K/uL (1.2-3.4); Lymphocytes % (auto) 26.6 %; Mean Corpuscular Hgb Conc 29.7 g/dL (32-36); Mean Corpuscular Volume 70.2 fL (80-100); Mean Platelet Volume 9.1 fL (7.4-10.4); Monocytes # (auto) 1.01 K/uL (0.11-0.59); Monocytes % (auto) 17.4 %; Neutrophils # (auto) 3.12 K/uL (1.4-6.5); Neutrophils % (auto) 53.9 %; Platelet Count 283 K/uL (130-400); RDW Coefficient of Variation 22.7 % (11.5-14.5); RDW Standard Deviation 56.1 fL (36.4-46.3); Red Blood Count 4.46 M/uL (4.7-6.1); White Blood Count 5.79 K/uL (4.8-10.8)
[2018-11-29 23:59] LABS: Anisocytosis Present; Hypochromasia Present; Microcytosis Present; Poikilocytosis Present
[2018-11-30 03:03] LABS: Anisocytosis Present; Basophils # (auto) 0.03 K/uL (0-0.2); Basophils % (auto) 0.5 %; Eosinophils # (auto) 0.07 K/uL (0-0.5); Eosinophils % (auto) 1.1 %; Hematocrit (blood only) 30.7 % (42-52); Hemoglobin 8.9 g/dL (14.0-18.0); Hypochromasia Present; Immature Granulocytes # (auto) 0.02 K/uL (0.00-0.02); Immature Granulocytes % (auto) 0.3 %; Lymphocytes # (auto) 1.22 K/uL (1.2-3.4); Lymphocytes % (auto) 19.2 %; Mean Corpuscular Volume 69.9 fL (80-100); Mean Platelet Volume 9.3 fL (7.4-10.4); Microcytosis Present; Monocytes # (auto) 0.78 K/uL (0.11-0.59); Monocytes % (auto) 12.3 %; Neutrophils # (auto) 4.24 K/uL (1.4-6.5); Neutrophils % (auto) 66.6 %; Platelet Count 287 K/uL (130-400); Poikilocytosis Present; RDW Coefficient of Variation 22.5 % (11.5-14.5); RDW Standard Deviation 55.6 fL (36.4-46.3); Red Blood Count 4.39 M/uL (4.7-6.1); Reticulocyte % 2.9 % (0.5-2.0); Reticulocytes # 0.13 10^6/uL (0.02-0.10); White Blood Count 6.36 K/uL (4.8-10.8)
[2018-11-30 03:04] LABS: Albumin Level 3.2 gm/dl (3.4-5.0); BUN Creatinine Ratio 8.1 (10-20); Calcium 7.9 mg/dl (8.5-10.1); Creatinine Clr Calc Pharmacy 92.8 ml/min; Est GFR (African American) 112.9; Est GFR (Non-African American) 97.4; Potassium 3.7 mmol/L (3.5-5.1)
[2018-11-30 03:08] LABS: Albumin Globulin Ratio 1.1 (0.9-2); Bilirubin,Total 0.3 mg/dl (0.2-1); Globulin 2.8 gm/dl (2.5-4.0)
[2018-11-30 03:25] LABS: Folate (Folic Acid) 15.27 ng/ml (>5.38)
[2018-11-30] MEDS ORDERED: POTASSIUM CHLORIDE 20 MEQ TABCR PO STA (05:08)
[2018-11-30] MEDS: NSS + 20MEQ KCL 20 MEQ/1,000 ML BAG IV SCH ×2 (06:39→15:17)
--- NOTE | 2018-11-30 08:16 | Anesthesiology Consultation ---
Date of Service November 30, 2018 Assessment & Plan (1) Encounter for pre-operative examination: Chart Review Chart Review: Acceptable Risk for Surgery Consults Requested none ASA ASA3 Proposed Anesthesia Anesthesia Type: General Risk / Benefits Reviewed With: PT / POA / Parent / Guardian, Accepts Plan and Informed Consent Obtained History Surgery Operation Date: 11/30/18 14:55 Proposed Procedures p Exam Under Anesthesia, Possible Hemorrhoidectomy, Surgery As Indicated - Jonathan Tracy, DO Height/Weight Height: 5 ft 8 in Weight: 68.2 kg Allergies Allergy/AdvReac Type Severity Reaction Status Date / Time No Known Allergies Allergy Verified 11/29/18 11:44 Medications Home Medications Medication Instructions Recorded Confirmed Last Taken ferrous sulfate 325 mg PO BID 07/19/18 11/29/18 11/29/18 omeprazole 20 mg PO QAM 07/19/18 11/29/18 11/29/18 sulfasalazine 0.5 g PO BID 07/19/18 11/29/18 11/29/18 tamsulosin 0.4 mg PO HS 07/20/18 11/29/18 07/31/18 20:00 methotrexate sodium 7.5 mg PO WK 11/29/18 11/29/18 11/24/18 Active Medications Generic Name Dose Route Start Last Admin Trade Name Freq PRN Reason Stop Dose Admin Acetaminophen 650 mg 11/29/18 14:33 11/29/18 15:16 Tylenol PO 12/29/18 14:32 650 mg Q4H PRN Administration Pain or Fever Ferrous Sulfate 325 mg 11/29/18 14:45 11/30/18 08:32 Feosol PO 12/29/18 14:44 325 mg BID MARGIE Administration Pantoprazole Sodium 40 mg/ 10 mls @ 5 mls/min 11/29/18 13:30 11/30/18 08:32 Syringe IV 12/29/18 13:29 5 mls/min BID@0900,2100 MARGIE Administration Potassium Chloride/Sodium Chloride 20 meq in 1,000 mls @ 100 mls/hr 11/29/18 14:33 11/30/18 10:50 Normal Saline W/20 Meq Kcl IV 12/29/18 14:32 0 mls/hr .Q10H MARGIE Infusion Simethicone 80 mg 11/30/18 08:52 11/30/18 10:13 Mylicon PO 12/30/18 08:51 80 mg Q6H PRN Administration gas pain Sulfadiazine 500 mg 11/30/18 09:00 11/30/18 08:32 Azulfidine PO 12/30/18 08:59 500 mg BID MARGIE Administration Tamsulosin HCl 0.4 mg 11/29/18 21:00 11/29/18 20:42 Flomax PO 12/29/18 20:59 0.4 mg HS MARGIE Administration Zolpidem Tartrate 5 mg 11/29/18 14:33 11/30/18 00:21 Ambien PO 12/29/18 14:32 5 mg HS PRN Administration Sleep Past Medical History Medical History Rectal bleeding Rheumatoid arthritis GERD (gastroesophageal reflux disease) CONTROLLED Iron deficiency anemia ON IRON SUPPLEMENTATION BPH (benign prostatic hyperplasia) Inflammatory arthritis Exercise / Class Metabolic Activity II 4-5 Yardwork/Stairs/Walk up hill Past Family History Family History Aunt Family hx of colon cancer Grandmother (Maternal) Family hx of colon cancer Other Family history of diabetes mellitus Past Surgical History Surgical History History of prostate surgery July 2018; Cystoscopy, Transurethral Resection of Prostate History of colonoscopy September 2015; diverticulosis, internal hemorrhoids History of esophagogastroduodenoscopy (EGD) September 2015; small hiatus hernia, severe chronic gastritis, acute inflammation, +H Pylori, focal intestinal metaplasia. History of inguinal hernia repair RIGHT History of nasal surgery Past Anesthesia History No Hx of Anesthesia Complications and No Family Hx of Anesthesia Complications History of PONV No Hx of PONV and No Hx of Motion Sickness Social History Smoking Status: Never smoker Do You Dip or Chew Tobacco: No Hx Alcohol Use: No Hx Substance Use: No substance use type: does not use Physical Exam Vital Signs Last Vital Signs Temp 98.4 F 11/30/18 06:59 Pulse 74 11/30/18 07:16 Resp 18 11/30/18 06:59 BP 123/71 11/30/18 06:59 Pulse Ox 97 11/30/18 06:59 ENMT Mouth: no dentition abnormality Thyromental Distance: > or= 3.5 Finger Breadths Mallampati Class: I Neck normal visual inspection Respiratory normal respiratory effort Auscultation: lungs clear to auscultation bilaterally Cardiovascular Rate/Rhythm: regular rate and regular rhythm Testing Laboratory Results 11/30/18 08:39 11/30/18 02:36 PT 12.0 Seconds (9.0-12.0) 11/29/18 11:27 INR 1.2 (0.9-1.1) H 11/29/18 11:27 APTT 25.9 Seconds (21.0-31.0) 11/29/18 11:27 Blood Type O Positive 11/29/18 11:23 Antibody Screen NEGATIVE 11/29/18 11:23 Electrocardiogram Date: 11/30/18 Findings: + NSR @ (74 bpm) Chest X-Ray Date: 07/20/18 Findings: + NAD
[2018-11-30] MEDS: PANTOprazole 40 MG in SYRINGE 0 ML IV SCH (08:32)
[2018-11-30] MEDS: FERROUS SULFATE 325 MG TAB PO SCH (08:32)
[2018-11-30] MEDS ORDERED: SIMETHICONE 80 MG CHEW PO PRN (08:52)
[2018-11-30] MEDS ORDERED: sulfaSALAzine 500 MG TABLET PO SCH (09:00)
[2018-11-30 09:07] LABS: Hematocrit (blood only) 32.6 % (42-52); Hemoglobin 9.4 g/dL (14.0-18.0); Mean Corpuscular Hgb Conc 28.8 g/dL (32-36); Mean Corpuscular Volume 71.3 fL (80-100); Mean Platelet Volume 9.5 fL (7.4-10.4); Platelet Count 303 K/uL (130-400); RDW Coefficient of Variation 22.3 % (11.5-14.5); RDW Standard Deviation 56.2 fL (36.4-46.3); Red Blood Count 4.57 M/uL (4.7-6.1); White Blood Count 5.81 K/uL (4.8-10.8)
[2018-11-30 09:28] LABS: Anisocytosis Present; Basophils # (auto) 0.04 K/uL (0-0.2); Basophils % (auto) 0.7 %; Eosinophils % (auto) 1.7 %; Hypochromasia Present; Immature Granulocytes # (auto) 0.02 K/uL (0.00-0.02); Immature Granulocytes % (auto) 0.3 %; Lymphocytes # (auto) 1.11 K/uL (1.2-3.4); Lymphocytes % (auto) 19.1 %; Microcytosis Present; Monocytes # (auto) 0.79 K/uL (0.11-0.59); Monocytes % (auto) 13.6 %; Neutrophils # (auto) 3.75 K/uL (1.4-6.5); Neutrophils % (auto) 64.6 %; Ovalocytes 1+
[2018-11-30] MEDS ORDERED: MIDAZOLAM HCL 1 MG/ML 2ML VIAL ONE (11:16)
[2018-11-30] MEDS ORDERED: fentaNYL citrate 100 MCG/2 ML VIAL ONE (11:16)
[2018-11-30] MEDS ORDERED: CEFAZOLIN 2,000 MG/15 ML IV PUSH IV ONE (11:25)
[2018-11-30] MEDS ORDERED: GELATIN SPONGE SZ 100 ONE ×2 (11:27→12:21)
[2018-11-30] MEDS ORDERED: BUPIVACAINE/EPINEPHRINE 0.5% MPF 1:200,000 30 ML VIAL ONE (11:28)
[2018-11-30] MEDS ORDERED: ATROPINE SULFATE 0.1 MG/ML 10ML SYR IV PRN (11:31)
[2018-11-30] MEDS ORDERED: ONDANSETRON INJ 2 MG/ML 2 ML VIAL IV PRN (11:31)
[2018-11-30] MEDS ORDERED: ePHEDrine sulfate 50 MG/ML AMP IV PRN (11:31)
--- NOTE | 2018-11-30 11:48 | History & Physical Bridge Note ---
Date of Service November 30, 2018 History & Physical Bridge Note I have examined the patient, reviewed the History & Physical and in the interval since the performance of the History & Physical I have noted the following changes of clinical significance: no changes noted. discussed options. will proceed with ANGIE with possible hemorrhoidectomy, possible spincterotomy, JACKSON
[2018-11-30] MEDS ORDERED: LIDOCAINE HCL 2% 2 ML VIAL/AMP(20MG/ML) INFIL ONE (12:14)
[2018-11-30] MEDS ORDERED: ONDANSETRON INJ 2 MG/ML 2 ML VIAL ONE (12:14)
[2018-11-30] MEDS ORDERED: DEXAMETHASONE SOD INJ 4 MG/ML VIAL ONE (12:14)
[2018-11-30] MEDS ORDERED: PROPOFOL IV EMULSION 10 MG/ML 20 ML VIAL IV ONE ×2 (12:14)
[2018-11-30] MEDS ORDERED: ROCURONIUM BROMIDE 10 MG/ML 5 ML VIAL ONE (12:22)
[2018-11-30] MEDS ORDERED: SUCCINYLCHOLINE CHLORIDE 20 MG/ML 10 ML VIAL ONE (12:22)
[2018-11-30] MEDS ORDERED: LIDOCAINE HCL 5% OINT 30 GM TUBE ONE (12:24)
[2018-11-30] MEDS ORDERED: LIDOCAINE HCL 5% OINT 30 GM TUBE EXT PRN (12:30)
--- NOTE | 2018-11-30 12:54 | Operative Report ---
Post Operative Report Pre & Post Diagnosis Operation Date: 11/30/18 14:55 Pre-Op Diagnosis: internal hemorrhoids;rectal bleeding/anemia Post-Op Diagnosis: internal hemorrhoids Procedure Operation Date: 11/30/18 14:55 Actual Procedures p Rectal Exam Under Anesthesia, Hemorrhoidectomy (Not Applicable) - Jonathan Tracy DO Surgeon Jonathan Tracy DO Bowling Ball Marker jena Argueta Estimated Blood Loss 5 Findings Consistent with Post-Op Diagnosis Specimens hemorrhoidal tissue Description of Procedure After informed consent was obtained the patient was taken to the operating room and placed in supine position. After successful intubation the patient was placed into a prone jackknife position with buttocks taped apart. The rectal area was sterilely prepped and draped in usual fashion. We began with an exam under anesthesia. He did have a large amount of redundant anoderm. There was also some prolapsing mucosal lesions consistent with likely internal hemorrhoids which did have some raw inflamed appearance to them. There were actually 3 of these 1 located at the 2 o'clock position one at the 5 o'clock position and one at the 7 o'clock position. The largest was at the 7 o'clock position. We began with the largest one by incising the mucosa at the anoderm. I injected Marcaine under the lesion to help with pain control. We then used a LigaSure device to detach the lesion from the mucosa and submucosa. Once we had it completely excised we sent it to pathology. I closed the mucosal layer using 3-0 chromic catgut in simple interrupted fashion. We repeated this exact same procedure for the second largest lesion which was the 5:00 lesion. Again anoderm was incised and LigaSure used to take it off at its pedicle. It was sent to pathology as well. I felt that there was not enough island of normal mucosa to take the third lesion without risk of stricture. It was relatively small anyway. There was no evidence of fissure, fistula or other gross abnormality. Once we were done we injected the entire rectal area with Marcaine again. The rectal vault was irrigated and a piece of Gelfoam with lidocaine jelly was placed into the rectal vault. The patient was rolled back into a supine position extubated and transferred to recovery in stable condition. My physician library media assistant was present to the entire case. He will prep the patient. He helped with retraction and exposure during my procedure. I attest to the content of the Intraoperative Record and any orders documented therein. Any exceptions are noted below.
[2018-11-30] MEDS: fentaNYL citrate 100 MCG/2 ML VIAL IV PRN ×2 (13:21→13:26)
--- NOTE | 2018-11-30 13:32 | Anesthesiology Progress Note ---
Date of Service November 30, 2018 Anesthesia Post Procedure Vital Signs Vital Signs: Temp Pulse Pulse Pulse Resp BP BP 11/30/18 13:25 77 14 125/84 11/30/18 13:15 72 13 132/83 11/30/18 13:05 72 13 126/87 11/30/18 12:56 97.3 F L 80 16 114/62 11/30/18 11:30 98.6 F 81 16 11/30/18 11:29 98.4 F 74 18 131/83 11/30/18 07:16 74 11/30/18 06:59 98.4 F 76 18 123/71 11/30/18 03:54 98.2 F 73 19 112/63 11/30/18 01:25 64 11/29/18 22:15 98.2 F 57 L 18 129/74 11/29/18 21:26 98.2 F 53 L 18 107/60 11/29/18 21:22 98.2 F 58 L 16 107/60 11/29/18 20:26 98.2 F 57 L 18 125/72 11/29/18 19:58 98.4 F 67 18 118/66 11/29/18 19:56 98.4 F 67 18 118/66 11/29/18 19:41 98.1 F 75 18 117/67 11/29/18 19:24 98.2 F 70 18 123/73 11/29/18 18:20 98.4 F 70 18 122/73 11/29/18 17:24 98.6 F 71 18 131/78 11/29/18 16:48 98.1 F 60 18 132/81 11/29/18 16:18 98.2 F 74 18 144/80 H 11/29/18 16:03 98.1 F 70 18 136/73 11/29/18 15:47 98.1 F 77 18 139/90 11/29/18 14:51 78 11/29/18 14:40 98.2 F 75 18 149/83 H 11/29/18 14:21 69 18 144/88 H 11/29/18 14:13 76 18 140/80 11/29/18 13:48 69 16 135/82 BP Pulse Ox 11/30/18 13:25 100 11/30/18 13:15 100 11/30/18 13:05 100 11/30/18 12:56 100 11/30/18 11:30 140/92 97 11/30/18 11:29 97 11/30/18 07:16 11/30/18 06:59 97 11/30/18 03:54 95 11/30/18 01:25 11/29/18 22:15 97 11/29/18 21:26 99 11/29/18 21:22 99 11/29/18 20:26 97 11/29/18 19:58 99 11/29/18 19:56 99 11/29/18 19:41 99 11/29/18 19:24 96 11/29/18 18:20 98 11/29/18 17:24 97 11/29/18 16:48 98 11/29/18 16:18 99 11/29/18 16:03 99 11/29/18 15:47 99 11/29/18 14:51 11/29/18 14:40 98 11/29/18 14:21 98 11/29/18 14:13 99 11/29/18 13:48 99 Pain Intensity Bilateral Lower Abdomen: Pain Intensity: 3 Transfer of Care Handoff Completed per policy Notes Mental Status: alert / awake / arousable and participated in evaluation Patient Amnestic to Procedure: Yes Nausea / Vomiting: adequately controlled Pain: adequately controlled Airway Patency, RR, SpO2: stable & adequate BP & HR: stable & adequate Hydration State: stable & adequate Anesthetic Complications: no major complications apparent and Pt Satisfied with anesthetic care
[2018-11-30] MEDS ORDERED: HYDROCODONE/ACETAMOPHEN 5/325MG TAB PO PRN ×2 (14:01)
[2018-11-30] MEDS ORDERED: MoRPHine SULFATE 2 MG/ML CARP IV PRN (14:01)
[2018-11-30] MEDS ORDERED: MoRPHine SULFATE 4 MG/ML 1 ML CARP\\VIAL IV PRN (14:01)
[2018-11-30 14:49] LABS: Basophils # (auto) 0.02 K/uL (0-0.2); Basophils % (auto) 0.2 %; Eosinophils # (auto) 0.02 K/uL (0-0.5); Eosinophils % (auto) 0.2 %; Hematocrit (blood only) 35.7 % (42-52); Hemoglobin 10.5 g/dL (14.0-18.0); Immature Granulocytes # (auto) 0.02 K/uL (0.00-0.02); Immature Granulocytes % (auto) 0.2 %; Lymphocytes # (auto) 0.41 K/uL (1.2-3.4); Lymphocytes % (auto) 3.7 %; Mean Corpuscular Hgb Conc 29.4 g/dL (32-36); Mean Corpuscular Volume 71.7 fL (80-100); Mean Platelet Volume 9.5 fL (7.4-10.4); Monocytes % (auto) 1.8 %; Neutrophils # (auto) 10.28 K/uL (1.4-6.5); Neutrophils % (auto) 93.9 %; Platelet Count 306 K/uL (130-400); RDW Coefficient of Variation 22.3 % (11.5-14.5); RDW Standard Deviation 56.5 fL (36.4-46.3); Red Blood Count 4.98 M/uL (4.7-6.1); White Blood Count 10.95 K/uL (4.8-10.8)
[2018-11-30 16:32] LABS: Anisocytosis Present; Hypochromasia Present; Ovalocytes 1+
--- NOTE | 2018-11-30 18:01 | Discharge Summary ---
Date of Service November 30, 2018 Admission HPI Per Admitting Provider Patient is a 52 years old male with past medical history of rheumatoid arthritis, benign prostatic hypertrophy and chronic anemia who presents to the emergency room complaining of chronic rectal bleeding for 4 years on and off. Patient states that rectal bleeding is worsening and that he also has chronic constipation. Patient had colonoscopy done 4 years ago. After that patient did not have follow-up and he also does not have established PCP. Patient was seeing Ms. Orozco for the rheumatoid arthritis but she left the area recently. Patient said that for some period of time he did not follow on his blood count and his family told him that he looks pale. He admits drinking in the past approximately 15+ cans of beer on the weekends but he stopped 2 years ago and recently in past 2 weeks he had only 3 beers altogether. Other than that patient reports being in good health and not having any other issues. Patient states that his bowel movements are painful most of the time. There are on and off brown in color and formed but on occasions and recently more often his bowel movements are covered with red blood mucousy and very painful. Patient said he is aware that he has hemorrhoids and patient states they are internal and external. Patient said he did not try anything to relieve his pain and constipation or hemorrhoids. Nothing makes it better or worse. Patient denies headache fever chills chest pain shortness of breath abdominal pain frequency urgency hematuria hemoptysis nausea and vomiting. Hematology White blood cell 4.86, hemoglobin 7.6, hematocrit 27.6, MCV 66.2 low MCH 18.2 low MCHC 27.5 low. Chemistry sodium 140, potassium 3.4, creatinine 0.76, GFR 107.5, BUN/creatinine 9.0., PT 12 INR 1.2, APTT 25.9. The case was discussed and patient is admitted to [facility] for further management and treatment. Admission Exam Per Admitting Provider Pale, diaphoretic Principal Diagnosis Acute blood loss anemia secondary to below Rectal bleeding secondary to below Complicated hemorrhoids status post hemorrhoidectomy Inflammatory arthritis, currently on methotrexate BPH currently on Flomax Discharge Exam Physical examination General patient appears to be comfortable, not in acute distress HEENT: Atraumatic , normocephalic /no jaundice /no pallor /anicteric /no dry mucous membrane /normal external ear inspection Neck: Supple /no swelling /central trach Heart: S1/S2 normal/regular rate and rhythm/no gallop /no rub /no murmur Lungs: Clear to auscultation bilaterally/normal chest with expansion/no rhonchi/no rales/no wheezing/no use of accessory muscles of respiration Abdomen: Soft/nontender/no guarding/no rebound/no organomegaly/no pulsatile mass Musculoskeletal: No swelling/no edema/no tenderness/normal range of motion Neuro exam: Awake alert oriented 3/cranial nerves II through XII appear to be intact/sensation intact/moves all extremities/no abnormal movements Psychiatric evaluation: No depressed mood/normal affect Skin: No rash on exposed skin area/no erythema Extremity: Normal pulse/no pitting edema/no clubbing or cyanosis Endocrine/lymphatic: No obvious lymphadenopathy /no lymphedema Discharge Data Allergies Allergy/AdvReac Type Severity Reaction Status Date / Time No Known Allergies Allergy Verified 11/29/18 11:44 Consultations 11/29/18 12:21 ED Decision to Admit Stat 11/29/18 14:33 Consult Case Management - Discharge Planning Routine Consult Gastroenterology Routine 11/29/18 15:11 Consult General Surgery Routine Procedures Performed Operation Date: 11/30/18 14:55 Actual Procedures p Rectal Exam Under Anesthesia, Hemorrhoidectomy (Not Applicable) [place] [address] Operative Report Signed Patient: DEXTER GARZA JRAdmit Date: 11/29/18 MR#: [id number] Phy: Pauline Quiñonez MD Acct ID:[id number] Phy: Bettina Mendoza DO Date: 1965Fam Phy: Age: 52Location: 2N Sex: M Room/Bed: [facility] cc: Jonathan Tracy DO~ *NOTICE TO RECEIVING GREEN PARTY/AGENCY This information is strictly Confidential and protected under [place] law. [place] law prohibits you from making any further disclosure of this information unless further disclosure is expressly permitted by the written consent of the person to whom it pertains or is authorized by law. A general authorization for the release of medical or other information is not sufficient for this purpose. Hospital accepts no responsibility if the information is made available to any other person, INCLUDING THE PATIENT. Post Operative Report Pre & Post Diagnosis Operation Date: 11/30/18 14:55 Pre-Op Diagnosis: internal hemorrhoids;rectal bleeding/anemia Post-Op Diagnosis: internal hemorrhoids Procedure Operation Date: 11/30/18 14:55 Actual Procedures p Rectal Exam Under Anesthesia, Hemorrhoidectomy (Not Applicable) - Jonathan Tracy DO Surgeon Jonathan Tracy DO Manager Balance jena Argueta Estimated Blood Loss 5 Findings Consistent with Post-Op Diagnosis Specimens hemorrhoidal tissue Description of Procedure After informed consent was obtained the patient was taken to the operating room and placed in supine position. After successful intubation the patient was placed into a prone jackknife position with buttocks taped apart. The rectal area was sterilely prepped and draped in usual fashion. We began with an exam under anesthesia. He did have a large amount of redundant anoderm. There was also some prolapsing mucosal lesions consistent with likely internal hemorrhoids which did have some raw inflamed appearance to them. There were actually 3 of these 1 located at the 2 o'clock position one at the 5 o'clock position and one at the 7 o'clock position. The largest was at the 7 o'clock position. We began with the largest one by incising the mucosa at the anoderm. I injected Marcaine under the lesion to help with pain control. We then used a LigaSure device to detach the lesion from the mucosa and submucosa. Once we had it completely excised we sent it to pathology. I closed the mucosal layer using 3-0 chromic catgut in simple interrupted fashion. We repeated this exact same procedure for the second largest lesion which was the 5:00 lesion. Again anoderm was incised and LigaSure used to take it off at its pedicle. It was sent to pathology as well. I felt that there was not enough island of normal mucosa to take the third lesion without risk of stricture. It was relatively small anyway. There was no evidence of fissure, fistula or other gross abnormality. Once we were done we injected the entire rectal area with Marcaine again. The rectal vault was irrigated and a piece of Gelfoam with lidocaine jelly was placed into the rectal vault. The patient was rolled back into a supine position extubated and transferred to recovery in stable condition. My physician tutoring assistant was present to the entire case. He will prep the patient. He helped with retraction and exposure during my procedure. I attest to the content of the Intraoperative Record and any orders documented therein. Any exceptions are noted below. Signed By:<Electronically signed by Jonathan Tracy DO>11/30/18 1254 Created: 11/30/18 1246 The status of this report is Signed. Draft = Not yet reviewed or approved by Medical Physician. Signed = Reviewed and approved by Medical Physician. Hospital Course (1) Rectal bleeding: Admission date is 11/29/2018, discharge date is 11/30 2018 Patient was admitted to medicine telemetry for rectal bleed and severe anemia, vitals were checked every 4 hours, patient was found to have a hemoglobin of 7, that is about 4 g hemoglobin drop from last hemoglobin recorded, patient was ordered 2 units of packed RBCs, also started on gentle IV fluid hydration. Started on Protonix 40 mg IV twice daily, consult GI was appreciated and their physical exam and evaluation revealed hemorrhoidal bleed, no colonoscopy was done. Consult surgery appreciated. Patient was found to have severe hemorrhoids. Patient went to the OR on had a successful hemorrhoidectomy that went uneventful. Patient was cleared for discharge by surgical team. Patient will have outpatient labs in about 5 days including BMP and CBC. (2) Rheumatoid arthritis: Stable, continued on methotrexate sodium and sulfasalazine. (3) BPH (benign prostatic hyperplasia): Stable, continued on tamsulosin 0.4 mg p.o. nightly Total Time Total Time Spent Total Time Spent (In Minutes): 35 minutes Total Time Includes: Examination of the Patient, Discharge Planning, Medication Reconciliation and Communication With Other Providers Discharge Plan Discharge Items Patient Disposition: Home - Self-Care Reason For Visit: HEMATOCHEZIA,SEVERE ANEMIA Discharge Diagnosis: hemorrhoidectomy Discharge Goals: Decrease discomfort Activity: Per 'Additional Instructions' section Lifting: None Bathing: No limitations Sexual Activity: When tolerated Exercise/Sports: None Driving/Machine Use: Resume 3 days after discharge Non-emergency contact: Surgeon Call non-emergency contact if: you have any medication questions, your pain is not controlled, you have a fever and your temperature is above 101.5 Follow-up/Referrals: Bettina Mendoza DO [Primary Care Provider] - 12/05/18 8:15 am (Please, follow up at Dr. Mendoza's office with her associate, Jonathan PEARCE on TuesdayDecember 05 at 8:15 am. *If you need to change this appointment, call the office at [phone]. Please obtain CBC and BMP prior to follow up) Jonathan Tracy, DO [Surgeon] - (Call to make an appt in 2-3 weeks) Diet: Regular Addtl Provider Instructions: You should take sitz baths 3-4 times daily (sit in a few inches of warm water for comfort) You can take an over the counter stool softener such as Colace as needed Prescriptions: New oxycodone-acetaminophen [Percocet] 5-325 mg tablet 1 - 2 tab PO Q4H PRN (Reason: pain, initial therapy) Qty: 15 RF: 0 Continued ferrous sulfate 325 mg (65 mg iron) Tablet 325 mg PO BID RF: 0 omeprazole 20 mg Capsule,Delayed Release(Dr/Ec) 20 mg PO QAM RF: 0 sulfasalazine 500 mg Tablet 0.5 g PO BID RF: 0 tamsulosin 0.4 mg Capsule 0.4 mg PO HS RF: 0 methotrexate sodium 2.5 mg tablet 7.5 mg PO WK RF: 0 Stand-Alone Forms: [facility] [employer], Opioid Pain Management Discharge Orders: Discharge Order (Routine); Ordered 11/30/18 Ordered By: Pauline Hawkins Admission Data Admit Date/Time: 11/29/18 13:44 Attending Provider: Pauline Quiñonez Admit Provider: Ilir Cortés Primary Care Provider: Bettina Mendoza Other Providers: Ilir Cortés ; Lorri Mattson ; Jonathan Tracy Service: Medical
[2018-12-01] MEDS ORDERED: metHOTREXate sodium 2.5 MG TAB PO SCH (09:00)
[2018-12-01] MEDS ORDERED: CEFAZOLIN 2000MG 2,000 MG/15 ML SYR IV ONE (11:33)
== END 2018-11-30 20:02 | disposition home or self-care (01) | DRG 348 ==
LOC: 2N 10:41 → ED 10:41 → OBSVTOIN 13:28 → SUATTDRO 13:44 → 2N 14:13 → 3N 11-30 13:57